=== PATIENT | male | born 1970 | race American Indian/Alaskan Native ===

== ENCOUNTER 2017-05-11 10:53 | Emergency (ER) | payer MEDICAID ==
[2017-05-11] MEDS ORDERED: CATAPRES PO ONE (13:39)
--- NOTE | 2017-05-11 13:42 | Emergency Department Report ---
Blank Doc - Documentation Documentation: Patient is a 47-year-old [place] male who was told to months ago that he had abnormal creatinine is coming in with dysuria. Patient states he has several weeks of suprapubic discomfort and dysuria he denies any hematuria or penile discharge. Patient also states he's had some dizziness intermittently and was told yesterday his blood pressure was 180 systolic. Patient does not see a physician for primary care. He does not have a history of hypertension and does not take medicines. Patient denies any chest pain shortness of breath or decreased ability to urinate Urinalysis was ordered secondary to the dysuria and a beer creatinine was with CBC has been ordered as well to rule out worsening renal function
[2017-05-11 13:54] VITALS: BP 139/88
[2017-05-11 13:57] LABS: Eosinophils % (Auto) 1.3 % (0.0-4.3); Hematocrit 44.9 % (35.5-45.6); Hemoglobin 15.1 gm/dl (11.8-15.2); Lymphocytes # (Auto) 1.3 K/mm3 (1.2-5.4); Lymphocytes % (Auto) 38.8 % (13.4-35.0); Mean Corpuscular HGB Conc 34 % (32-34); Mean Corpuscular Hemoglobin 32 pg (28-32); Mean Corpuscular Volume 95 fl (84-94); Monocytes # (Auto) 0.3 K/mm3 (0.0-0.8); Monocytes % (Auto) 9.4 % (0.0-7.3); Platelet Count 173 K/mm3 (140-440); Red Blood Count 4.72 M/mm3 (3.65-5.03); Red Cell Distribution Width 13.8 % (13.2-15.2)
[2017-05-11 14:10] LABS: BUN/Creatinine Ratio 5; Blood Urea Nitrogen 7 mg/dL (9-20); Calcium 8.8 mg/dL (8.4-10.2); Hemolysis Index 13
[2017-05-11 14:11] LABS: Bilirubin,Urine NEG (Negative); Blood,Urine NEG (Negative); Color,Urine Yellow (Yellow); Mucus,Urine FEW /HPF; Nitrite,Urine NEG (Negative); Protein,Urine <15 mg/dL mg/dL (Negative)
--- NOTE | 2017-05-11 14:41 | Emergency Department Report ---
ED Male HPI - General Chief complaint: Abdominal Pain Stated complaint: LIGHTHEADED Time Seen by Provider: 05/11/17 13:24 Source: patient Mode of arrival: Ambulatory Limitations: No Limitations - History of Present Illness Initial comments: Patient is a 47-year-old [place]ag[place] male who is presenting with frequent urination and dysuria for approximately 2 months. Patient states that several months ago he did get a rectal exam that and was told that his prostate was normal in size. Patient states he also has had a slightly abnormal creatinine at that time as well. Patient denies any penile discharge hematuria back pain or fevers chills nausea vomiting at this time. Patient does state that he has some mild suprapubic discomfort. Patient states he has some intermittent dizziness and blood pressure has been elevated recently yesterday it was checked at his pain clinic and was 180s systolic patient does not take any medications. Patient states he does not have any history of symptoms of end organ damage patient denies any chest pain shortness of breath or weakness at this time. - Related Data Previous Rx's Medication Instructions Recorded Last Taken Type Ibuprofen [Motrin] 800 mg PO Q8HR PRN #30 tablet 09/17/15 Unknown Rx Ciprofloxacin HCl [Cipro] 500 mg PO BID #14 tablet 05/11/17 Unknown Rx Lisinopril/Hydrochlorothiazide 1 each PO DAILY #30 tablet 05/11/17 Unknown Rx [Zestoretic 10-12.5 mg Tablet] traMADol [Ultram] 50 mg PO Q6HR PRN #12 tablet 05/11/17 Unknown Rx Allergies Allergy/AdvReac Type Severity Reaction Status Date / Time No Known Allergies Allergy Verified 09/16/15 22:20 ED Review of Systems ROS: Stated complaint: LIGHTHEADED Other details as noted in HPI Comment: All other systems reviewed and negative ED Past Medical Hx - Past Medical History Hx Hypertension: Yes Additional medical history: SCIATICA/ BACK DISK - Surgical History Past Surgical History?: No - Social History Smoking Status: Never Smoker Substance Use Type: None - Medications Home Medications: Home Medications Medication Instructions Recorded Confirmed Last Taken Type Ibuprofen [Motrin] 800 mg PO Q8HR PRN #30 tablet 09/17/15 Unknown Rx Ciprofloxacin HCl [Cipro] 500 mg PO BID #14 tablet 05/11/17 Unknown Rx Lisinopril/Hydrochlorothiazide 1 each PO DAILY #30 tablet 05/11/17 Unknown Rx [Zestoretic 10-12.5 mg Tablet] traMADol [Ultram] 50 mg PO Q6HR PRN #12 tablet 05/11/17 Unknown Rx ED Physical Exam - General Limitations: No Limitations General appearance: alert, in no apparent distress - Head Head exam: Present: atraumatic, normocephalic - Eye Eye exam: Present: normal appearance - ENT ENT exam: Present: mucous membranes moist - Neck Neck exam: Present: normal inspection - Respiratory Respiratory exam: Present: normal lung sounds bilaterally. Absent: respiratory distress - Cardiovascular Cardiovascular Exam: Present: regular rate, normal rhythm. Absent: systolic murmur, diastolic murmur, rubs, gallop - GI/Abdominal GI/Abdominal exam: Present: soft, normal bowel sounds - Rectal Rectal exam: Present: deferred - Extremities Exam Extremities exam: Present: normal inspection - Back Exam Back exam: Present: normal inspection - Neurological Exam Neurological exam: Present: alert, oriented X3 - Psychiatric Psychiatric exam: Present: normal affect, normal mood - Skin Skin exam: Present: warm, dry, intact, normal color. Absent: rash ED Course Vital Signs 05/11/17 05/11/17 05/11/17 11:24 13:50 13:55 Temperature 98.4 F Pulse Rate 82 79 76 Respiratory 16 Rate Blood Pressure 142/110 139/88 139/88 O2 Sat by Pulse 98 98 Oximetry ED Medical Decision Making - Lab Data Result diagrams: 05/11/17 13:42 05/11/17 13:42 Lab Results 05/11/17 05/11/17 05/11/17 Range/Units 11:36 13:42 13:42 WBC 3.4 L (4.5-11.0) K/mm3 RBC 4.72 (3.65-5.03) M/mm3 Hgb 15.1 (11.8-15.2) gm/dl Hct 44.9 (35.5-45.6) % MCV 95 H (84-94) fl MCH 32 (28-32) pg MCHC 34 (32-34) % RDW 13.8 (13.2-15.2) % Plt Count 173 (140-440) K/mm3 Lymph % (Auto) 38.8 H (13.4-35.0) % [place] % (Auto) 9.4 H (0.0-7.3) % Eos % (Auto) 1.3 (0.0-4.3) % Baso % (Auto) 1.0 (0.0-1.8) % Lymph # 1.3 (1.2-5.4) K/mm3 [place] # 0.3 (0.0-0.8) K/mm3 Eos # 0.0 (0.0-0.4) K/mm3 Baso # 0.0 (0.0-0.1) K/mm3 Seg Neutrophils % 49.5 (40.0-70.0) % Seg Neutrophils # 1.7 L (1.8-7.7) K/mm3 Sodium 139 (137-145) mmol/L Potassium 4.2 (3.6-5.0) mmol/L Chloride 101.4 (98-107) mmol/L Carbon Dioxide 27 (22-30) mmol/L Anion Gap 15 mmol/L BUN 7 L (9-20) mg/dL Creatinine 1.3 (0.8-1.5) mg/dL Estimated GFR > 60 ml/min BUN/Creatinine Ratio 5 % Glucose 91 (75-100) mg/dL Calcium 8.8 (8.4-10.2) mg/dL Urine Color Yellow (Yellow) Urine Turbidity Clear (Clear) Urine pH 5.0 (5.0-7.0) Ur Specific [place] 1.020 (1.003-1.030) Urine Protein <15 mg/dl (Negative) mg/dL Urine Glucose (UA) Neg (Negative) mg/dL Urine Ketones Neg (Negative) mg/dL Urine Blood Neg (Negative) Urine Nitrite Neg (Negative) Urine Bilirubin Neg (Negative) Urine Urobilinogen 2.0 (<2.0) mg/dL Ur Leukocyte Esterase Neg (Negative) Urine WBC (Auto) 3.0 (0.0-6.0) /HPF Urine RBC (Auto) 1.0 (0.0-6.0) /HPF U Epithel Cells (Auto) < 1.0 (0-13.0) /HPF Urine Mucus Few /HPF - Medical Decision Making Patient's creatinine is 1.3 which is slightly elevated but not to the point where the patient will need to be admitted to the hospital via 7. Urinalysis was within normal limits which does lead me to believe that this may be a prostatitis that the patient is complaint complaining of or some type of bladder issue that is not infectious. I am going to start the patient on Cipro empirically and await urine cultures. Patient's blood pressure decreased to 139 /88 without intervention however the patient will be placed on Zestoretic for blood pressure at this time will have follow-up patient is stable for discharge at this time. Critical care attestation.: If time is entered above; I have spent that time in minutes in the direct care of this critically ill patient, excluding procedure time. ED Disposition Clinical Impression: Hypertensive urgency Prostatitis Qualifiers: Prostatitis type: other Qualified Code(s): N41.8 - Other inflammatory diseases of prostate Disposition: DC-01 TO HOME OR SELFCARE Is pt being admited?: No Does the pt Need Aspirin: No Condition: Stable Additional Instructions: Please keep your appointment with urologist tomorrow Prescriptions: Ciprofloxacin HCl [Cipro] 500 mg PO BID #14 tablet Lisinopril/Hydrochlorothiazide [Zestoretic 10-12.5 mg Tablet] 1 each PO DAILY # 30 tablet traMADol [Ultram] 50 mg PO Q6HR PRN #12 tablet PRN Reason: Pain Referrals: PRIMARY CARE, [Primary Care Provider] - 3-5 Days
== END 2017-05-11 14:50 | disposition home or self-care (01) ==
LOC: ED 10:53
DX: N41.9 Inflammatory disease of prostate, unspecified (principal); I16.0 Hypertensive urgency; I10 Essential (primary) hypertension
CPT/HCPCS: 36415; 80048; 81001; 85025; 99283